=== PATIENT | male | born 1995 | race Caucasian/White ===

== ENCOUNTER 2018-08-04 18:51 | Emergency (ER) | payer BC, OTHER ==
[2018-08-04] MEDS ORDERED: Lidocaine 1%* 5 ML VIAL INJ ONE (22:42)
[2018-08-04] MEDS ORDERED: Lidocaine 1%* 5 ML VIAL ONE (22:45)
[2018-08-04] MEDS ORDERED: Cephalexin CAP* 500 MG PO ONE (23:01)
[2018-08-04] MEDS ORDERED: Tetan/Diph/Pertus SYR(Tdap)* 0.5 ML SYR(BOOSTRIX) use SYR IM ONE (23:01)
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
[2018-08-04 23:25] VITALS: BP 133/64
== END 2018-08-04 23:24 | disposition home or self-care (01) ==
LOC: ED 18:51
DX: S09.93XA Unspecified injury of face, initial encounter (principal); V89.0XXA Person injured in unspecified motor-vehicle accident, nontraffic, initial encounter; Y92.410 Unspecified street and highway as the place of occurrence of the external cause; J32.2 Chronic ethmoidal sinusitis; R60.9 Edema, unspecified; F17.290 Nicotine dependence, other tobacco product, uncomplicated
CPT/HCPCS: 12015; 70486; 90471; 90715; 99282; A9270-GY